=== PATIENT | male | born 1980 | race Caucasian/White ===

== ENCOUNTER 2020-01-07 03:15 | Emergency (ER) | payer BC, SELFPAY ==
--- NOTE | ~2020-01-07 | CT_ITS ---
EXAMINATION: CT abdomen pelvis w con DATE: 01/07/2020 04:44 INDICATION: Abdominal pain TECHNIQUE: Computed tomography (CT) of the abdomen and pelvis was performed with 100 cc Omnipaque 350 intravenous contrast. The dose-length product was 991.64 mGy-cm. Automated exposure control and iter ative reconstruction technique were employed. COMPARISON: None. FINDINGS: Bibasilar dependent atelectasis. Heart size normal. No significant pleural or pericardial e ffusion. Mildly distended gallbladder. Possible gallstone at the gallbladder neck. Recommend correlat ion with ultrasound. Biliary dilatation. Fatty infiltration of the liver. The spleen, pancreas, adren al glands and kidneys are unremarkable. No lymphadenopathy. Small fat-containing umbilical hernia. No bowel obstruction. No free air or free fluid. IMPRESSION: 1. No gallbladder distention with possible gallstone at the gallbladder neck. No secondary findings t o suggest acute cholecystitis. 2: Hepatic steatosis. Reviewed, dictated and finalized at location A. IMPRESSION: 1. No gallbladder distention with possible gallstone at the gallbladder neck. N o secondary findings to suggest acute cholecystitis. 2: Hepatic steatosis.
[2020-01-07 03:23] VITALS: BP 164/103; PULSE 73; RESP 16; TEMP 36.1; O2SAT 99
[2020-01-07 03:45] LABS: Basophils Absolute Auto 0.1 K/mm3 (0.0-0.1); Basophils Percent Auto 0.6 % (0.2-1.2); Eosinophils Absolute Auto 0.3 K/mm3 (0-0.3); Eosinophils Percent Auto 3.6 % (0-4.4); Hematocrit 45.2 % (42.0-52.0); Hemoglobin 15.1 g/dL (14.0-18.0); Immature Granulocyte Absolute 0.04 K/mm3 (0.00-0.031); Immature Granulocyte Percent A 0.5 % (0-0.5); Lymphocytes Absolute Auto 2.22 K/mm3 (0.9-3.2); Lymphocytes Percent Auto 28.4 % (18.3-44.2); Mean Corpuscular HGB Conc 33.4 g/dl (32-36); Mean Corpuscular Hemoglobin 28.1 pg (26-34); Mean Platelet Volume 11.9 fl (7.4-10.4); Monocytes Absolute Auto 0.4 K/mm3 (0.1-0.6); Monocytes Percent Auto 5.6 % (2.6-8.5); Neutrophils Absolute Auto 4.8 K/mm3 (1.3-6.7); Neutrophils Percent Auto 61.3 % (45.5-73.1); Platelet Count Result 221 k/mm3 (150-375); Red Blood Count 5.38 M/mm3 (4.6-6.20); Red Cell Distribution Width 13.1 % (11.5-14.5); White Blood Count 7.8 K/mm3 (4.5-10.0)
[2020-01-07 03:59] LABS: Add Urine Microscopic? YES; Appearance Urine Clear (Clear); Bilirubin Urine Negative (Negative); Blood Urine 1+ (Negative); Color Urine Straw (Yellow); Glucose Urine UA Negative (Negative); Ketones Urine Negative (Negative); Leukocyte Esterase Ur Negative LEU/UL (Negative); Nitrate Urine Negative (Negative); Protein Urine Negative (Negative); Specific Grav Ur 1.016 (1.001-1.035); Squamous Epithelial Cell Urine Rare /hpf (Few); Urobilinogen Urine Negative mg/dL (<2.0); WBC Urine 0-3 /hpf
--- NOTE | 2020-01-07 04:29 | ED.ABDPAIN ---
HPI - Abdominal Pain General Chief Complaint: Abdominal Pain Stated Complaint: right sided abd pain Time Seen by Provider: 01/07/20 03:33 Source: patient Mode of arrival: ambulatory Limitations: no limitations History of Present Illness HPI narrative: Patient is a 39-year-old male who presents to the emergency department with complaint of abdominal pain. Patient reports onset of symptoms at approximately 1130 last night. Initially pain was located in the epigastric region. Patient reports migration of the pain to the right lateral abdomen at approximately 1 AM. Patient states at this time pain has subsided. Patient describes the pain as pushing . He denies any aggravating or alleviating factors. He reports having nausea but denies any vomiting, diarrhea, constipation, or urinary symptoms. MD elicited complaint: abdominal pain Onset (ago): hour(s) Pain Consistency: constant Location: epigastric Migration to: RUQ and R flank Exacerbating factors: nothing Relieving factors: nothing Associated symptoms: nausea Treatments prior to arrival: NSAIDs Review of Systems Review of Systems: All systems reviewed & are unremarkable except as noted in HPI and below Constitutional: Constitutional: Denies fever(s) Gastrointestinal: Gastrointestinal: Reports abdominal pain, Denies constipation, Denies diarrhea, Reports nausea and Denies vomiting Genitourinary: Genitourinary: Denies hematuria and Denies urinary frequency PMFSH Past Medical History Medical History (Updated 01/07/20 @ 05:53 by Etelvina Villareal MD) Hyperlipidemia Hypertension Surgical History Surgical History (Updated 01/07/20 @ 04:32 by Etelvina Villareal MD) No history of previous surgery Social History Social History (Updated 01/07/20 @ 04:32 by Etelvina Villareal MD) Smoking status: Never smoker Comments PMD: Dr. Reyes Exam Const: General: cooperative, no acute distress and alert Nutritional Appearance: overweight Orientation/consciousness: patient oriented x3 Limitations: no limitations HENMT: Mouth: Yes lip normal and Yes moist mucous membranes Resp: Effort & Inspection: normal respiratory effort Auscultation: clear to auscultation bilaterally Cardio: Rate: regular rate Rhythm: regular rhythm GI: GI Palp: Yes Soft to palpation and No Tenderness to palpation present (GI) Auscultation: normal bowel sounds Skin: General skin exam: normal color Neuro: General: patient oriented x3 Cognition (Neuro): normal cognition Speech: normal speech Extrem: General: normal to inspection, full ROM and no clubbing, cyanosis or edema Psych: Mental Status: mental status grossly normal Affect: normal affect Attitude: cooperative Course Course Emergency Course: Patient pain-free on my evaluation and no recurrence of pain on reevaluation. Patient with findings of large gallstone on CT scan. Discussed with patient diagnosis of biliary colic and advised surgical follow-up. Counseled on importance of low-fat diet. Vital Signs Vital signs: Vital Signs Temperature 96.9 F L 01/07/20 03:23 Pulse Rate 73 01/07/20 03:23 Respiratory Rate 16 01/07/20 03:23 Blood Pressure 164/103 H 01/07/20 03:23 Pulse Oximetry 99 01/07/20 03:23 Temperature 96.9 F L 01/07/20 03:23 Pulse Rate 67 01/07/20 05:17 Respiratory Rate 18 01/07/20 05:17 Blood Pressure 153/93 H 01/07/20 05:17 Pulse Oximetry 98 01/07/20 05:17 MDM - Abdominal Pain Lab Data Attestation: I reviewed the patient's lab results. Result diagrams: 01/07/20 03:37 01/07/20 04:22 Labs: Lab Results 01/07/20 01/07/20 01/07/20 Range/Units 03:34 03:37 03:37 WBC 7.8 (4.5-10.0) K/mm3 RBC 5.38 (4.6-6.20) M/mm3 Hgb 15.1 (14.0-18.0) g/dL Hct 45.2 (42.0-52.0) % MCV 84.0 (80-100) fl MCH 28.1 (26-34) pg MCHC 33.4 (32-36) g/dl RDW 13.1 (11.5-14.5) % Plt Count 221 (150-375) k/mm3 MPV 11.9 H
[2020-01-07 04:35] LABS: Estimated Glomerular Filt Rate > 60
[2020-01-07 04:43] LABS: Alanine Aminotransferase 52 U/L (4-50); Albumin Level 4.8 g/dL (3.5-5.1); Alkaline Phosphatase 101 U/L (38-126); Aspartate Amino Transferase 39 U/L (17-59); Bilirubin,Total 0.6 mg/dL (0.2-1.3); Blood Urea Nitrogen 22 mg/dL (9-20); Calcium 9.1 mg/dL (8.4-10.2); Carbon Dioxide 20 mmol/L (22-30); Chloride 108 mmol/L (98-107); Estimated Glomerular Filt Rate > 60; Glucose 111 mg/dL (75-110); Lipase 60 U/L (23-300); Sodium 136 mmol/L (137-145)
[2020-01-07 05:17] VITALS: BP 153/93; PULSE 67; RESP 18; O2SAT 98
[2020-01-07 06:04] VITALS: BP 149/80; PULSE 72; RESP 16; TEMP 36.6; O2SAT 99
== END 2020-01-07 06:06 | disposition home or self-care (01) ==
PROVIDERS: Emergency Provider Emergency Medicine
DX: K80.50 Calculus of bile duct without cholangitis or cholecystitis without obstruction (principal); E78.5 Hyperlipidemia, unspecified; I10 Essential (primary) hypertension
CPT/HCPCS: 36415; 74177; 80053; 81001; 83690; 85025; 99284; Q9967

== ENCOUNTER 2020-07-19 13:19 | Emergency (ER) | payer BC, SELFPAY ==
--- NOTE | ~2020-07-19 | XR_ITS ---
EXAMINATION: XR foot RT min 3V DATE: 07/19/2020 14:50 INDICATION: Right foot swelling and erythema TECHNIQUE: Dorsoplantar, two oblique and lateral views of the right foot were obtained. COMPARISON: None. FINDINGS: Bone alignment is normal. No fracture. There is flattening of the articular cortex at the head of the right second metatarsal consistent with osteonecrosis (Freiberg's infraction) with chronic appearing collapse of the articular surface. Small heterotopic ossicle versus degenerative loose body at the m edial side of the second metatarsophalangeal joint space. Mild osteoarthritis at the first metatarsop halangeal joint. No cortical erosions or periosteal reaction. There is soft tissue swelling over the dorsal lateral aspect of the midfoot. IMPRESSION: 1. No acute osseous abnormality. 2. 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 Reviewed, dictated and finalized at location A. IMPRESSION: 1. No acute osseous abnormality. 2. Freiberg's infraction/osteonecrosis with chronic appearing collapse of the a rticular surface at the head of the second metatarsal.
[2020-07-19 13:30] VITALS: BP 144/100; PULSE 80; RESP 16; TEMP 36.4; O2SAT 99
--- NOTE | 2020-07-19 13:58 | ED.GENADULT ---
HPI - General Adult General Chief complaint: Extremity Injury, Lower Stated complaint: right foot pain Time Seen by Provider: 07/19/20 13:41 Source: patient and family Mode of arrival: ambulatory Limitations: no limitations History of Present Illness HPI narrative: Patient is a 40-year-old male who presents to emergency department for evaluation of tender swollen right foot noted over the last 3 days he is developed redness swelling and tenderness over the dorsum of the right foot denies injury or trauma to attribute further he has condition patient denies similar occurrence in the past patient presents per private vehicle has been taken ibuprofen with no improvement Related Data Home Medications Medication Instructions Recorded Confirmed cetirizine 5 mg tablet 5 mg PO DAILY PRN 01/18/20 ibuprofen 600 mg tablet 600 mg PO TID 01/18/20 omega-3 fatty acids 1,000 mg 1,000 mg PO DAILY 01/18/20 capsule Allergies Allergy/AdvReac Type Severity Reaction Status Date / Time peach Allergy Unknown Hives Verified 01/18/20 10:59 Review of Systems Review of Systems: All systems reviewed & are unremarkable except as noted in HPI and below PMFSH Past Medical History Medical History Hyperlipidemia Surgical History Surgical History No history of previous surgery Family History Family History (Updated 01/18/20 @ 11:02 by Katina Nash [facility]) Father High cholesterol Grandparent Diabetes mellitus Grandparent Cancer Hypertension Social History Social History Smoking status: Never smoker Alcohol intake: current Substance use: never Gender identity (if verbalized by the patient): Male Exam Narrative: Exam Narrative: GENERAL: Well-appearing, well-nourished, and in no acute distress. HEAD: Normocephalic, atraumatic. EYES: PERRLA and EOMI. ENT: Nares clear, no rhinorrhea or epistaxis. Mucous membranes moist. CHEST: Clear to auscultation. No respiratory distress. No wheezes rales or rhonchi HEART: Regular rate and rhythm. No murmur heard. Normal peripheral pulses. EXTREMITIES: Normal range of motion. Patient with tenderness and swelling from the right great toe extending across the forefoot to the lateral midfoot remainder of ankle and extremity nontender no deformity SKIN: Warm, dry, no rash. NEURO: No focal deficits. Alert and oriented x3. Neurovascularly intact. Capillary refill less than 2 seconds PSYCH: Normal mood and affect. Course Course Emergency Course: Patient in the room at this time aware of case findings treatment plan and diagnosis agreeing to follow-up as directed given fluids and anti-inflammatories in the emergency department and is felt appropriate for outpatient reevaluation will be referred to orthopedics Vital Signs Vital signs: Vital Signs Temperature 97.5 F L 07/19/20 13:30 Pulse Rate 80 07/19/20 13:30 Respiratory Rate 16 07/19/20 13:30 Blood Pressure 144/100 H 07/19/20 13:30 Pulse Oximetry 99 07/19/20 13:30 Temperature 97.5 F L 07/19/20 13:30 Pulse Rate 80 07/19/20 13:30 Respiratory Rate 16 07/19/20 13:30 Blood Pressure 144/100 H 07/19/20 13:30 Pulse Oximetry 99 07/19/20 13:30 Medical Decision Making MDM Narrative Medical decision making narrative: Patient in the room at this time in no distress aware of case findings treatment plan and diagnosis. Patients injury or pain is consistent with musculoskeletal etiology. No signs of neurological or vascular compromise on exam. Compartments and tisues are soft without signs of compartment syndrome. Pain is felt appropriate for further evaluation on an outpatient basis. Vital Signs Vital Signs: Vital Signs Temperature 97.5 F L 07/19/20 13:30 Pulse Rate 80 07/19/20 13:
[2020-07-19] MEDS: SODIUM CHLORIDE 0.9% IV 1,000 ML 999 ML IV CONT (14:19)
[2020-07-19] MEDS: KETOROLAC 30 MG/ML VIAL (*BKC) IV PUSH (14:19)
[2020-07-19] MEDS: COLCHICINE 0.6 MG TABLET 1.2 MG PO (14:20)
[2020-07-19 14:34] LABS: Basophils Absolute Auto 0.1 K/mm3 (0.0-0.1); Basophils Percent Auto 0.6 % (0.2-1.2); Eosinophils Absolute Auto 0.3 K/mm3 (0-0.3); Eosinophils Percent Auto 3.3 % (0-4.4); Hematocrit 46.4 % (42.0-52.0); Hemoglobin 15.4 g/dL (14.0-18.0); Immature Granulocyte Absolute 0.04 K/mm3 (0.00-0.031); Immature Granulocyte Percent A 0.4 % (0-0.5); Lymphocytes Absolute Auto 1.99 K/mm3 (0.9-3.2); Mean Corpuscular HGB Conc 33.2 g/dl (32-36); Mean Corpuscular Hemoglobin 28.3 pg (26-34); Mean Corpuscular Volume 85.3 fl (80-100); Mean Platelet Volume 11.7 fl (7.4-10.4); Monocytes Absolute Auto 0.7 K/mm3 (0.1-0.6); Neutrophils Percent Auto 65.7 % (45.5-73.1); Platelet Count Result 186 k/mm3 (150-375); Red Blood Count 5.44 M/mm3 (4.6-6.20); Red Cell Distribution Width 12.8 % (11.5-14.5); White Blood Count 9.1 K/mm3 (4.5-10.0)
[2020-07-19 14:44] LABS: Alanine Aminotransferase 83 U/L (4-50); Albumin Level 5.1 g/dL (3.5-5.1); Alkaline Phosphatase 85 U/L (38-126); Anion Gap 10 mmol/L (8-16); Aspartate Amino Transferase 48 U/L (17-59); Blood Urea Nitrogen 17 mg/dL (9-20); CRP 3.3 mg/dL (<1.0); Calcium 10.5 mg/dL (8.4-10.2); Carbon Dioxide 26 mmol/L (22-30); Chloride 102 mmol/L (98-107); Estimated CRCL calculation 107 ml/min; Estimated Glomerular Filt Rate > 60; Glucose 105 mg/dL (75-110); Sodium 138 mmol/L (137-145); Uric Acid 7.2 mg/dL (3.5-8.5)
[2020-07-19 14:58] LABS: Erythrocyte Sedimentation Rate 9 mm/hr (0-20)
[2020-07-19 15:00] VITALS: BP 132/90; PULSE 75; RESP 18; O2SAT 100
== END 2020-07-19 16:38 | disposition home or self-care (01) ==
PROVIDERS: Emergency Medicine Emergency Medical Services; Emergency Provider Emergency Medicine; PCP Internal Medicine
DX: M79.671 Pain in right foot (principal); E78.5 Hyperlipidemia, unspecified
CPT/HCPCS: 36415; 73630; 80053; 84550; 85025; 85652; 86140; 96361; 96374; 99284; A9270; J1885; J7030

== ENCOUNTER → 2021-03-04 09:06 | Outpatient (CLI) | payer BC, SELFPAY ==
--- NOTE | ~2021-03-04 | US_ITS ---
EXAMINATION: US abdomen limited DATE: 03/04/2021 09:30 INDICATION: Chronic cholecystitis, right upper quadrant pain TECHNIQUE: Multiple grayscale and Doppler ultrasound images of the abdomen were obtained. COMPARISON: CT, 320 FINDINGS: The head and body of the pancreas are normal. The pancreatic tail is obscured by bowel gas. The liver demonstrates increased echogenicity, heterogenous echotexture, and decreased through trans mission. No surface nodularity. Normal hepatopetal flow in the main portal vein. There are multiple s tones in the nondistended gallbladder. There is no pericholecystic fluid or gallbladder wall thickeni ng. The normal common bile duct measures 4 mm. There was no sonographic Antony sign. IMPRESSION: 1. Cholelithiasis without evidence of cholecystitis. 2. Diffuse hepatic steatosis. Reviewed, dictated and finalized at location A.
== END ==
PROVIDERS: Visit Provider Surgery
DX: K80.20 Calculus of gallbladder without cholecystitis without obstruction (principal); K76.0 Fatty (change of) liver, not elsewhere classified
CPT/HCPCS: 76705

== ENCOUNTER 2022-05-29 08:29 | Outpatient (CLI) | payer BC, SELFPAY ==
[2022-05-29 09:26] LABS: Alanine Aminotransferase 39 U/L (6-50); Albumin Level 5.1 g/dL (3.5-5.1); Alkaline Phosphatase 72 U/L (38-126); Amylase 100 U/L (30-110); Aspartate Amino Transferase 31 U/L (17-59); Lipase 40 U/L (23-300)
== END 2022-05-29 08:30 | disposition home or self-care (01) ==
LOC: ANHSURGERY 08:40
PROVIDERS: PCP Internal Medicine; Visit Provider Surgery
DX: Z01.812 Encounter for preprocedural laboratory examination (principal); K81.1 Chronic cholecystitis
CPT/HCPCS: 36415; 80076; 82150; 83690; 86850; 86900; 86901

== ENCOUNTER 2022-06-03 00:54 | Day surgery (SDC) | payer BC, SELFPAY ==
[2022-05-26 18:16] VITALS: BMI 27.6
--- NOTE | 2022-05-26 18:24 | PC.NURSE ---
Report to the Outpatient Waiting Room, entrance under the green pavilion located off [facility], at time __10:00AM____ on date __[birth year] . OR Time: ___12:00PM . - You and your visitor will be asked a series of questions to screen for COVID 19 for your protection. - Only one visitor is allowed at this time. - The patient visitor is requested to leave or wait in car when not with patient. - A mask is required within the hospital. Patients may have clear liquids (water, carbonated beverages, clear teas, apple juice) until 3 hours prior to surgery with a maximum of 20 ounces. - No food from midnight until time of surgery Take the following medications with a SIP of water the morning of surgery: ___N/A Medications to discontinue per physician VITAMINS Date to take last qpgi 4-65-18 Please no make-up, nail romansh, hairspray, perfume, deodorant, or body powder the day of surgery. No jewelry (including any body piercings) or valuables the day of surgery, leave them at home. Please take a shower or bath the night before, or the morning of, surgery with an antibacterial soap. Wear comfortable loose fitting clothing. - Jewelry must be removed prior to entering the operating room. Rings and piercings that are not removed may be cut off. - The hospital will not accept responsibility for valuables. - Please leave all valuables, including medications, at home the day of surgery. If you are going home after surgery, a licensed vending route driver must drive you home. - NO public transportation without another adult. - We recommend that an adult stay with you for 24 hours following discharge. - We also recommend that you do not drive, make important decision, drink alcoholic beverages, or take any drugs that were not prescribed by your health care provider for at least 24 hours after your discharge time. Follow any additional instructions given to you from your surgeon. If you or anyone in your household have experienced Covid symptoms in the past week, please notify your surgeon or the nurse liaison at the phone number below for possible testing. Telephone instructions given to ____PATIENT____and asked if any additional questions and then verbalized understanding. Patient advised to call surgeon office or pre surgery nurse liaison [phone] if any additional questions.
[2022-06-03] VITALS (8 sets, daily range): BP systolic 141–157; BP diastolic 84–96; PULSE 56–83; RESP 13–18; TEMP 36.4; O2SAT 98–100
--- NOTE | 2022-06-03 08:19 | WPDHPUPDATE1 ---
History and Physical Update Update Date/Time: 06/03/22 08:19 History and Physical has been reviewed, including an updated exam of the patient. There are NO changes in the patient's condition. Risks, benefits, and alternatives have been discussed and questions answered. Patient agrees to proceed with procedure.
[2022-06-03] MEDS: LACTATED RINGERS 1,000 ML 30 ML IV CONT ×2 (10:40→14:13)
[2022-06-03] MEDS: KETOROLAC 15 MG/ML VIAL (*BKC) IV PUSH (10:41)
[2022-06-03] MEDS: ACETAMINOPHEN 500 MG TABLET 1000 MG PO (10:41)
--- NOTE | 2022-06-03 12:08 | P.PNAN_ITS ---
Anes - Initial Pre Proc Eval Procedure: Operation Date: 06/03/22 12:00 Proposed Procedures p Laparoscopic Cholecystectomy - Gonzalez Sierra MD Date/Time: 06/03/22 12:08 Surgeon: Gonzalez Sierra MD Pre Op Diagnosis: Chronic Cholecystitis with Stones Patient Data Age: 42 Gender: M Height: 1.88 m Weight: 97.5 kg Last Vital Signs Temp 97.6 F 06/03/22 10:02 Pulse 70 06/03/22 10:02 Resp 18 06/03/22 10:02 BP 150/86 H 06/03/22 10:02 Pulse Ox 99 06/03/22 10:02 O2 Del Method Room Air 06/03/22 10:02 Allergies Allergy/AdvReac Type Severity Reaction Status Date / Time peach Allergy Intermediate Hives Verified 06/03/22 11:03 Home Medications Medication Instructions Recorded Confirmed Type cetirizine 5 mg tablet 5 mg PO DAILY 01/18/20 06/03/22 History omega-3 fatty acids 1,000 mg 1,000 mg PO DAILY 01/18/20 06/03/22 History capsule (Fish Oil Concentrate) ibuprofen 400 mg tablet 400 mg PO Q6H PRN Pain 05/14/22 06/03/22 History pseudoephedrine HCl 30 mg tablet 30 mg PO Q4-6H PRN Nasal Congestion 05/14/22 06/03/22 History (Sudafed) Patient hx anesthesia problems: none Family hx anesthesia problems: none Results Review: All pre-operative results and documents have been reviewed as part of the pre- operative evaluation. [facility] Past Medical History Medical History Allergies Anxiety Gout High blood pressure Hyperlipidemia Surgical History Surgical History No history of previous surgery Family History Family History Father High cholesterol Diabetes mellitus Alcoholism Hypertension Grandparent Diabetes mellitus Malignant neoplasm of prostate Hypertension Sibling Alcoholism Heart disease Cerebrovascular accident Social History Social History (System 05/19/22 @ 15:30 by Alma Mcdaniels) Years smoked: 4 Smoking status: Former smoker Tobacco type: cigarettes Smoking end date: 11/01/02 Alcohol intake: current Drinks per week: 16 Alcohol use details: social alcohol use Substance use: former Substance use type: marijuana Living arrangements: with family Additional occupation/education comments: Construction Gender identity (if verbalized by the patient): Male Spiritual care concerns: No Anes - Eval Final PreProcedure Day of Procedure 06/03/22 12:08 Patient weight: overweight Heart: regular rate and rhythm Lungs: clear to auscultation Airway: Mallampati scale class II Neurological: alert and oriented Last oral intake: >/= 8 hours ASA classification: II Emergent: no Anesthetic plan: proceed Anesthesia type and monitoring: general ETT and standard monitoring Results Review: All pre-operative results and documents have been reviewed as part of the pre- operative evaluation. Informed Consent: The patient's anesthetic plan and its attendant risks and benefits were disc ussed with the patient/family/POA. Questions were solicited and answers provided to the satisfaction of the patient/family/POA.
[2022-06-03] MEDS: ceFAZolin 2 GM/D5W 50 ML 2 GM/50 ML BAG IVPB (12:55)
[2022-06-03] MEDS: BUPIVACAINE/EPINEPHRINE 0.25% 50 ML VIAL INFILTRATE (13:54)
--- NOTE | 2022-06-03 14:31 | P.OP_ITS ---
Procedure Note - Detailed Date of Procedure 06/03/22 Pre-op Diagnosis Chronic Cholecystitis with Stones Post-op Diagnosis Same Procedure Performed Laparoscopic cholecystectomy Surgeon Gonzalez Sierra MD [employer] T[employer] DIAZ Anesthesia General and Local (0.25% Marcaine with epinephrine) Indications Patient is a 42-year-old man who has postprandial upper abdominal pain particularly after fatty meals. He has been found on imaging to have gallstones and is taken to surgery now for laparoscopic cholecystectomy. Findings Many stones were present in the gallbladder. There was some moderate inflammation associated with the gallbladder and the cholecystohepatic triangle. There was no biliary ductal dilatation or liver abnormalities noted. Description of Procedure Patient was taken to surgery and induced into general anesthesia. The abdomen is prepped and draped. Trocars were placed in the usual fashion using applied Medical optical trocars and local anesthetic. The gallbladder was decompressed with a laparoscopic aspirator. The cholecystotomy was closed with a Vicryl endoloop. The gallbladder was then retracted anterosuperiorly. Dissection was carried out in the cholecystohepatic triangle. The cystic duct and cystic artery were dissected out clearly. The gallbladder was dissected off the liver its lower 3rd. Critical view was achieved. We securely clipped and divided the cystic duct and cystic artery. The gallbladder was then dissected free of its remaining attachments to the liver. Once it was freed from the liver, it was placed in an Endo-Catch bag retrieved through the 10 11 epigastric trocar site. I had to enlarge the epigastric trocar site as there were numerous stones in the gallbladder and the gallbladder was somewhat thick walled. After enlarging the trocar site, I was able to extricate the gallbladder from the abdomen. We then replaced the epigastric trocar and used a towel clip to occlude the skin and subcutaneous so that we could reinsufflated. I reviewed the gallbladder fossa and right upper quadrant. All looked good with no evidence of bleeding or bile leakage. We then evacuated CO2 and removed the trocar sleeves. I closed the fascia at the epigastric trocar site with a [id number] mattress suture of 0 Vicryl. The subcutaneous was closed with 3-0 Vicryl suture. All skin wounds were closed with subcuticular 4-0 Monocryl skin suture. The wounds were dressed with Exofin surgical adhesive. Patient was awakened and taken to recovery in good condition. Sponge and needle counts were correct x2. Estimated Blood Loss -10 Drains No Packing No Pathology Yes (Gallbladder) Complications No immediate complications Condition Stable Disposition PACU [facility] Billing Surgery - Charge Forward: Surgery Billing (Laparoscopic cholecystectomy)
--- NOTE | 2022-06-03 14:37 | SUR.PHASEI ---
Simple mask removed at 1435.
[2022-06-03] MEDS: ONDANSETRON INJ 4 MG/2 ML VIAL IV PUSH (15:37)
== END 2022-06-03 16:25 | disposition home or self-care (01) ==
PROVIDERS: PCP Internal Medicine; Visit Provider Surgery
PROC: 0FT44ZZ Resection of Gallbladder, Percutaneous Endoscopic Approach (ICD-10-PCS; CPT 47562; principal; 2022-06-03 12:00)
DX: K80.10 Calculus of gallbladder with chronic cholecystitis without obstruction (principal); Z87.891 Personal history of nicotine dependence
CPT/HCPCS: 47562; 88304; A9270; C1713; J0690; J1100; J1885; J2250; J2405; J2704; J2710; J3010; J7120

== ENCOUNTER → 2022-06-15 09:26 | Outpatient (CLI) | payer BC, SELFPAY ==
--- NOTE | ~2022-06-15 | XR_ITS ---
XR wrist LT min 3V 06/15/2022 09:40 Indication: Left wrist pain Procedure: 4 views left wrist Comparison: No prior studies for comparison. Findings: There is mild osteoarthritis of the triscaphe joint. Normal mineralization. No fracture or traumatic malalignment. No focal soft tissue abnormality. No foreign bodies. Impression: 1: Mild osteoarthritis of the triscaphe joint. Reviewed, dictated and finalized at location B. Impression: 1: Mild osteoarthritis of the triscaphe joint.
== END ==
PROVIDERS: PCP Internal Medicine; Visit Provider Clinical Nurse Specialist
DX: M19.032 Primary osteoarthritis, left wrist (principal)
CPT/HCPCS: 73110

== ENCOUNTER 2024-06-27 13:29 | Outpatient (CLI) | payer BC, SELFPAY ==
--- NOTE | ~2024-06-27 | MR_ITS ---
EXAMINATION: MR brain/brain stem wo con DATE: 06/27/2024 14:24 INDICATION: Episodic cluster headache. TECHNIQUE: Magnetic resonance imaging (MRI) of the brain and brainstem was performed without intraven ous contrast. The patient refused contrast. COMPARISON: None. FINDINGS: There is an empty sella. There is no intracranial hemorrhage, acute infarction, or abnormal intracranial mass lesion. The ventricles are normal in size. There is a mucous retention cyst in rig ht maxillary sinus. The orbits are normal. The mastoid air cells are normal. IMPRESSION: 1. Empty sella. Reviewed, dictated and finalized at location A. IMPRESSION: 1. Empty sella.
== END 2024-06-27 13:30 ==
LOC: MICIMG 13:30
PROVIDERS: PCP Internal Medicine; Visit Provider Psychiatry & Neurology Neurology
DX: G44.019 Episodic cluster headache, not intractable (principal); E23.6 Other disorders of pituitary gland
CPT/HCPCS: 70551

== ENCOUNTER 2025-05-09 11:19 | Outpatient (CLI) | payer BC, SELFPAY ==
--- NOTE | ~2025-05-09 | XR_ITS ---
Lumbosacral Spine: AP and lateral views Clinical History: Pain Findings: The normal lordotic curve is maintained. The vertebral bodies and posterior elements are i ntact. The intervertebral disc spaces are preserved. The sacroiliac joints are normally outlined. Impression: No significant abnormality. Reviewed, dictated and finalized at [facility]. Impression: No significant abnormality.
== END 2025-05-09 11:20 | disposition home or self-care (01) ==
LOC: MICIMG 11:20
PROVIDERS: PCP Internal Medicine; Visit Provider Clinical Nurse Specialist
DX: M54.50 Low back pain, unspecified (principal)
CPT/HCPCS: 72100